=== PATIENT | female | born 1970 | race Hispanic/Latino ===

== ENCOUNTER 2022-03-27 10:54 | Emergency (ER) | payer SELFPAY ==
[2022-03-27] MEDS ORDERED: Fluorescein Opthalmic Strip ONE (11:16)
[2022-03-27] MEDS ORDERED: Proparacaine 0.5% Opth 15 ML BOT ONE (11:23)
[2022-03-27] MEDS ORDERED: Boostrix 0.5 ML (Tdap) VIAL ONE (12:30)
== END 2022-03-27 13:07 | disposition home or self-care (01) ==
LOC: ERS 10:54
DX: S05.02XA Injury of conjunctiva and corneal abrasion without foreign body, left eye, initial encounter (principal); W22.8XXA Striking against or struck by other objects, initial encounter
CPT/HCPCS: 90471; 90715; 99283

== ENCOUNTER 2023-12-02 21:16 | Emergency (ER) | payer SELFPAY ==
[2023-12-02] MEDS ORDERED: Proparacaine 0.5% Opth 15 ML BOT ONE ×2 (22:51→23:02)
[2023-12-02] MEDS ORDERED: Acetaminophen 325 MG TAB ONE (22:51)
[2023-12-02] MEDS ORDERED: Fluorescein Opthalmic Strip ONE (22:51)
== END 2023-12-02 23:35 | disposition home or self-care (01) ==
LOC: ERS 21:16
DX: H11.31 Conjunctival hemorrhage, right eye (principal); I10 Essential (primary) hypertension
CPT/HCPCS: 99283